=== PATIENT | female | born 1985 | race Caucasian/White ===

== ENCOUNTER 2019-01-24 18:02 | Emergency (ER) | payer SELFPAY ==
[~2019-01-24] VITALS: Ht 170.2 cm; Wt 81.6 kg
[2019-01-24 18:24] LABS: BILIRUBIN,URINE NEGATIVE (NEG); CLARITY,URINE CLEAR; COLOR,URINE YELLOW; NITRITE,URINE POSITIVE (NEG); PROTEIN,URINE NEGATIVE (NEG-TRACE)
[2019-01-24 18:30] LABS: BACTERIA,URINE MODERATE /HPF (0-FEW); SQUAMOUS EPITHELIAL CELL,UR MOD /LPF
--- NOTE | 2019-01-24 18:36 | PHYS DOC ---
Past Medical History Past Medical History: No Pertinent History (ANTHONY VAUGHN DO) Past Surgical History: No Surgical History (ANTHONY VAUGHN DO) Additional Information: Nonsmoker Alcohol Use: None Drug Use: None (ANTHONY VAUGHN DO) Adult General Chief Complaint Chief Complaint: VAGINAL BLEEDING HPI HPI Patient is a 33 year old F who is A0. She reports her LMP was early December so she thinks she is about 4-5 weeks along. She took a positive test at home. She noticed some R low pelvis pain over the last few days and also noticed when she wipes after she urinates, she has seen some "pink" no the toilet paper, but has not had to wear a pad. She does not currently have an OB. Her last delivery was at . (MARK GUERRA) Review of Systems Review of Systems Constitutional: Denies fever or chills Respiratory: Denies cough or shortness of breath Cardiovascular: Denies chest pain. GI: Denies abdominal pain, nausea, vomiting, bloody stools or diarrhea : Denies dysuria or hematuria. Reports low pelvic pain and bleeding. Musculoskeletal: Denies back pain or joint pain Integument: Denies rash or skin lesions Neurologic: Denies headache, focal weakness or sensory changes All other systems were reviewed and found to be within normal limits, except as documented in this note. (MARK GUERRA) Current Medications Current Medications Current Medications Medications (Trade) Dose Ordered Sig/Ricki Start Time Stop Time Status Last Admin Dose Admin Sodium Chloride 1,000 ml @ 1,000 mls/hr 1X ONCE 01/24/19 18:45 01/24/19 19:44 DC 01/24/19 18:45 1,000 MLS/HR (ANTHONY VAUGHN DO) Allergies Allergies Allergies Coded Allergies Type Severity Reaction Last Updated Verified No Known Drug Allergies 01/24/19 No (ANTHONY VAUGHN DO) Physical Exam Physical Exam Constitutional: Well developed, well nourished, no acute distress, non-toxic appearance. HENT: Normocephalic, atraumatic, bilateral external ears normal, oropharynx moist, no oral exudates, nose normal. Neck: Normal range of motion, no tenderness, supple, no stridor. Cardiovascular:Heart rate regular rhythm, no murmur Lungs & Thorax: Bilateral breath sounds clear to auscultation Abdomen: Bowel sounds normal, soft, no tenderness, no masses, no pulsatile mas ses. Pt currently has no abd pain : Currently no pelvic pain on exam. Skin: Warm, dry, no erythema, no rash. Back: No tenderness, no CVA tenderness. Extremities: No tenderness, no cyanosis, no clubbing, ROM intact, no edema. Neurologic: Alert and oriented X 3, normal motor function, normal sensory function, no focal deficits noted. Psychologic: Affect normal, judgement normal, mood normal. (MARK GUERRA) Current Patient Data Lab Values Laboratory Tests Test 01/24/19 18:13 01/24/19 18:19 01/24/19 18:46 01/24/19 19:30 Urine Collection Type Unknown Urine Color Yellow Urine Clarity Clear Urine pH 6.0 Urine Specific Bryant 1.025 Urine Protein Negative mg/dL (NEG-TRACE) Urine Glucose (UA) Negative mg/dL (NEG) Urine Ketones (Stick) Negative mg/dL (NEG) Urine Blood Small (NEG) Urine Nitrite Positive (NEG) Urine Bilirubin Negative (NEG) Urine Urobilinogen Dipstick 1.0 mg/dL (0.2 mg/dL) Urine Leukocyte Esterase Negative (NEG) Urine RBC 3-5 /HPF (0-2) Urine WBC 1-4 /HPF (0-4) Urine Squamous Epithelial Cells Mod /LPF Urine Bacteria Moderate /HPF (0-FEW) Urine Mucus Mod /LPF POC Urine HCG, Qualitative Hcg positive (Negative) White Blood Count 7.3 x10^3/uL (4.0-11.0) Red Blood Count 4.10 x10^6/uL (3.50-5.40) Hemoglobin 12.1 g/dL (12.0-15.5) Hematocrit 35.7 % (36.0-47.0) L Mean Corpuscular Volume 87 fL (79-100) Mean Corpuscular Hemoglobin 29 pg (25-35) Mean Corpuscular Hemoglobin Concent 34 g/dL (31-37) Red Cell Distribution Width 13.5 % (11.5-14.5) Platelet Count 338 x10^3/uL (140-400) Neutrophils (%) (Auto) 73 % (31-73) Lymphocytes (%) (Auto) 22 % (24-48) L Monocytes (%) (Auto) 4 % (0-9) Eosinophils (%) (Auto) 1 % (0-3) Basophils (%) (Auto) 0 % (0-3) Neutrophils # (Auto) 5.3 x10^3uL (1.8-7.7) Lymphocytes # (Auto) 1.6 x10^3/uL (1.0-4.8) Monocytes # (Auto) 0.3 x10^3/uL (0.0-1.1) Eosinophils # (Auto) 0.1 x10^3/uL (0.0-0.7) Basophils # (Auto) 0.0 x10^3/uL (0.0-0.2) Maternal Serum HCG Beta Subunit 28055 mIU/mL (0-5) H Sodium Level 138 mmol/L (136-145) Potassium Level 3.4 mmol/L (3.5-5.1) L Chloride Level 102 mmol/L (98-107) Carbon Dioxide Level 22 mmol/L (21-32) Anion Gap 14 (6-14) Blood Urea Nitrogen 12 mg/dL (7-20) Creatinine 0.6 mg/dL (0.6-1.0) Estimated GFR (Cockcroft-Gault) 115.9 BUN/Creatinine Ratio 20 (6-20) Glucose Level 114 mg/dL (70-99) H Calcium Level 9.2 mg/dL (8.5-10.1) Total Bilirubin 0.2 mg/dL (0.2-1.0) Aspartate Amino Transferase (AST) 18 U/L (15-37) Alanine Aminotransferase (ALT) 12 U/L (14-59) L Alkaline Phosphatase 54 U/L (46-116) Total Protein 7.8 g/dL (6.4-8.2) Albumin 3.9 g/dL (3.4-5.0) Albumin/Globulin Ratio 1.0 (1.0-1.7) Chlamydia DNA Probe Negative (Negative) Neisseria gonorrhoeae DNA Probe Negative (Negative) Laboratory Tests 01/24/19 18:46 Laboratory Tests 01/24/19 18:46 Microbiology 01/24/19 Wet Prep - Final, Complete 01/24/19 Urine Culture - Final, Complete 01/24/19 Urine Culture Result 1 (ISRA[place]) - Final, Complete 01/24/19 Urine Culture Result 2 ([place]) - Final, Complete 01/24/19 Antimicrobic Susceptibility - Final, Complete (ANTHONY VAUGHN DO) EKG EKG [] (MARK GUERRA) Radiology/Procedures Radiology/Procedures [] (MARK GUERRA) Impressions: US shows 6 week gestation with HR 120 and large subchorionic hemorrhage (MARK GUERRA) Course & Med Decision Making Course & Med Decision Making Pertinent Labs and Imaging studies reviewed. (See chart for details) Discussed with pt the findings on ultrasound and importance of close f/u with OB. Name and number provided for our provider contracting consultant OB. Pt has mild UTI, and since will cover with keflex. Recommended pelvic rest and pushing fluids. Long discussion of large subchorionic hemorrhage and that these can sometimes resolve, but can sometimes become worse and lead to increased risk of mis carriage. RH positive, no rhogam needed. No bleeding on exam. (MARK GUERRA) Dragon Disclaimer Dragon Disclaimer This electronic medical record was generated, in whole or in part, using a voice recognition dictation system. (MARK GUERRA) Departure Departure Impression: Primary Impression: Threatened miscarriage in early Additional Impression: Urinary tract infection Disposition: 01 HOME, SELF-CARE Condition: STABLE Referrals: BLANKA OVALLE MD Patient Instructions: - Urinary Tract Infection, Threatened Miscarriage, [id number] Additional Instructions: Pelvic rest, push fluids, follow up closely with OB. Scripts Cephalexin (KEFLEX) 500 Mg Capsule 1 CAP PO TID, #21 CAP Prov: MARK GUERRA 01/24/19 Attending Signature Attending Signature I have reviewed the PA/MASTER CARPENTER's note and plan of care for Dr. Knight. Dr. Knight was available for consultation as needed at all times during the patient's visit in the emergency department. I agree with the clinical impression, plan and disposition. (ANTHONY VAUGHN DO) Problem Qualifiers MARK GUERRA Jan 24, 2019 18:36 ANTHONY VAUGHN DO Mar 15, 2019 12:00
[2019-01-24] MEDS ORDERED: IV NORMAL SALINE 1000ML BAG 1,000 ML IV ONE (18:45)
[2019-01-24 19:02] LABS: BASO % 0 % (0-3); EOS # 0.1 x10^3/uL (0.0-0.7); EOS % 1 % (0-3); HEMATOCRIT 35.7 % (36.0-47.0); HEMOGLOBIN 12.1 g/dL (12.0-15.5); LYMPH # 1.6 x10^3/uL (1.0-4.8); LYMPH % 22 % (24-48); MEAN CORPUSCULAR HEMOGLOBIN 29 pg (25-35); MEAN CORPUSCULAR HGB CONC 34 g/dL (31-37); MEAN CORPUSCULAR VOLUME 87 fL (79-100); MONO # 0.3 x10^3/uL (0.0-1.1); MONO % 4 % (0-9); NEUT # 5.3 x10^3uL (1.8-7.7); NEUT % 73 % (31-73); PLATELET COUNT 338 x10^3/uL (140-400); RED CELL DISTRIBUTION WIDTH 13.5 % (11.5-14.5); WHITE BLOOD COUNT 7.3 x10^3/uL (4.0-11.0)
[2019-01-24 19:05] LABS: CALCIUM 9.2 mg/dL (8.5-10.1); CREATININE 0.6 mg/dL (0.6-1.0); GFR 115.9; POTASSIUM 3.4 mmol/L (3.5-5.1)
[2019-01-24 19:12] LABS: ALBUMIN 3.9 g/dL (3.4-5.0); TOTAL BILIRUBIN 0.2 mg/dL (0.2-1.0); TOTAL PROTEIN 7.8 g/dL (6.4-8.2)
--- NOTE | 2019-01-24 19:55 | RAD ---
Obstetric ultrasound less than 14 weeks: Reason for examination: Intermittent bleeding for 5 days. 6 para 5. Transabdominal ultrasound examination of the pelvis was performed. The cervix length is normal at 4.3 cm and appears to be closed. Uterus measures 9.8 x 7.2 x 8.0 cm. There appears to be 3.1 x 2.9 x 2.4 cm hypodense lesion in the anterior uterus consistent with a fibroid. The right ovary measures 2.8 x 1.7 x 1.9 cm in greatest dimensions and shows normal vascular flow without mass. The left ovary appears to measure 3.3 x 1.7 x 2.7 cm in greatest dimension with a 1.5 cm corpus luteal cyst. A gestational sac is present within the endometrial cavity. The gestational sac has a normal contour. A yolk sac is present within the gestational sac and a pole was identified measuring 7.1 mm in greatest dimension corresponding to gestational age of 6 weeks 4 days. Cardiac activity seen with a rate of 120 bpm. Note is made however of a subchorionic hemorrhage extending more than 50 percent around the circumference of the gestational sac measuring 4.3 cm transaxially. IMPRESSION: Single viable intrauterine gestation with a mean gestational age estimated at 6 weeks 4 days with estimated date of confinement of 09/14/2019. Subchorionic hemorrhage measuring 4.3 cm transverse axially and extending more than 50 percent around the gestational sac. 1.5 cm corpus luteal cyst at the left ovary. Electronically signed by: Gabrielle Olvera MD (01/24/2019 7:52 PM) [facility]
[2019-01-24] MEDS ORDERED: CEPH-264 PO (20:29)
[2019-01-24 20:51] VITALS: BP 112/69
[2019-01-28 15:15] LABS: GC PROBE Negative (Negative)
== END 2019-01-24 20:59 | disposition home or self-care (01) ==
LOC: ER 18:02
DX: O20.0 Threatened abortion (principal); O23.41 Unspecified infection of urinary tract in pregnancy, first trimester; N83.12 Corpus luteum cyst of left ovary; Z3A.01 Less than 8 weeks gestation of pregnancy
CPT/HCPCS: 36415; 76801; 80053; 81001; 81025; 84702; 85025; 86901; 87086; 87186; 87491; 87591; 99285; J7030; Q0111